=== PATIENT | male | born 1985 | race African-American/Black ===

== ENCOUNTER 2019-12-04 00:47 | Emergency (ER) | payer SELFPAY ==
[2019-12-04 01:28] VITALS: BP 150/80; PULSE 74; TEMP 97.6; BMI 30.7
--- NOTE | 2019-12-04 01:57 | PDOC ---
*Physical Exam - Vital Signs Last Vital Signs Temp Pulse Resp BP Pulse Ox 97.6 F 74 18 150/80 100 12/04/19 01:13 12/04/19 01:13 12/04/19 01:13 12/04/19 01:13 12/04/19 01:13 Medical Decision Making - Medical Decision Making 12/04/19 01:56 Patient seen by the advanced practice provider under my direct supervision. Ancillary testing reviewed as necessary. I agree with plan as outlined by the advanced practice provider. Discharge - Discharge Information Problems reviewed: Yes Clinical Impression/Diagnosis: Rectal bleed - Follow up/Referral - Patient Discharge Instructions - Post Discharge Activity
--- NOTE | 2019-12-04 02:16 | PDOC ---
History of Present Illness - General Chief Complaint: Rectal Bleed Stated Complaint: CONSTIPATION Time Seen by Provider: 12/04/19 01:40 History Source: Patient Exam Limitations: No Limitations - History of Present Illness Initial Comments: 12/04/19 02:14 HISTORY OF PRESENT ILLNESS: 34-year-old otherwise healthy male presents to the ER with intermittent blood in his stool started 4 days ago after a bowel movement. Patient reports his bowel movement was very hard and required a lot of force to evacuate his bowels. Over the past 2 days he has had continued hard bowel movements with increased force needed. He denies any trauma. No recent travel or sick contacts. PAST MEDICAL HISTORY: Denies past medical history SURGICAL HISTORY: Denies ALLERGIES: No known drug allergies REVIEW OF SYSTEMS General/Constitutional: Denies fever or chills. Denies weakness, weight change. HEENT: Denies change in vision. Denies ear pain or discharge. Denies sore throat. Cardiovascular: Denies chest pain or shortness of breath. Respiratory: Denies cough, wheezing, or hemoptysis. Gastrointestinal: See HPI Genitourinary: Denies dysuria, frequency, or change in urination. Musculoskeletal: Denies joint or muscle swelling or pain. Denies neck or back pain. Skin and breasts: Denies rash or easy bruising. Neurologic: Denies headache, vertigo, loss of consciousness, or loss of sensation. Psychiatric: Denies depression or anxiety. Endocrine: Denies increased thirst. Denies abnormal weight change. Hematologic/Lymphatic: Denies anemia, easy bleeding, or history of blood clots. Allergic/Immunologic: Denies hives or skin allergy. Denies latex allergy. PHYSICAL EXAM General Appearance: Well-appearing, appropriately dressed. No apparent distress , no intoxication. Respiratory/Chest: Lungs CTAB. No shortness of breath, chest tenderness, respiratory distress, accessory muscle use. No crackles, rales, rhonchi, stridor , wheezing, dullness Cardiovascular: RRR. S1, S2. No JVD, murmur, bradycardia, tachycardia. Gastrointestinal/Abdominal: Normal bowel sounds. Abdomen soft, non-distended. No tenderness or rebound tenderness. No organomegaly, pulsatile mass, guarding, hernia, hepatomegaly, splenomegaly. Rectal: External hemorrhoids noted. No fissures present. No palpable internal hemorrhoids noted. Prostate is within normal limits. Lymphatic: No adenopathy, tenderness. Past History - Past Medical History Allergies/Adverse Reactions: Allergies Allergy/AdvReac Type Severity Reaction Status Date / Time No Known Allergies Allergy Verified 12/04/19 01:16 CVA: No COPD: No - Psycho Social/Smoking Cessation Hx Smoking History: Never smoked Have you smoked in the past 12 months: No Information on smoking cessation initiated: No Hx Alcohol Use: No Drug/Substance Use Hx: No *Physical Exam - Vital Signs Last Vital Signs Temp Pulse Resp BP Pulse Ox 97.6 F 74 18 150/80 100 12/04/19 01:13 12/04/19 01:13 12/04/19 01:13 12/04/19 01:13 12/04/19 01:13 Medical Decision Making - Medical Decision Making 12/04/19 02:14 A/P: 34-year-old male with external hemorrhoids Discharge home with instructions for supportive treatment using hydrocortisone ointment and which ryan pads I discussed the physical exam findings, ancillary test results and final diagnoses with the patient. I answered all of the patient's questions. The patient was satisfied with the care received and felt comfortable with the discharge plan and treatment plan. The patient will call their primary care physician within 24 hours to arrange follow-up and will return to the Emergency Department with any new, persistent or worsening symptoms. Discharge - Discharge Information Problems reviewed: Yes Clinical Impression/Diagnosis: External hemorrhoid Condition: Stable Disposition: HOME - Admission No - Follow up/Referral - Patient Discharge Instructions Patient Printed Discharge Instructions: DI for Hemorrhoids Additional Instructions: Apply witch ryan pads to hemorrhoid as needed for pain relief. Apply a thin layer of hydrocortisone ointment to hemorrhoid to help decrease swelling and persistent pain. Drink plenty of fluids. Drink one glass of prune juice every day. Eat lots of leafy green vegetables, berries, fruits and whole grains. Return to emergency department for severe rectal bleeding, increased pain, or any other concerns. - Post Discharge Activity
== END 2019-12-04 02:20 | disposition home or self-care (01) ==
LOC: JER 00:47
DX: K64.4 Residual hemorrhoidal skin tags (principal)
CPT/HCPCS: 99282-25